=== PATIENT | male | born 1930 | race Caucasian/White ===

== ENCOUNTER 2020-04-22 19:02 | Emergency (ER) | payer MEDICARE, OTHER ==
[~2020-04-22 19:02] MED LIST: ATIVAN0.5 MG PO; ATORVASTATIN CA20 MG PO; AVODART0.5 MG PO; BAYER CHEWABLE81 MG PO; CLOPIDOGREL75 MG PO; CONSTULOSE10 GM/15 M PO; DITROPAN XL 5 MG5 MG PO; DRIZALMA SPRINK30 MG PO; EUTHYROX50 MCG PO; FLOMAX 0.4 MG0.4 MG PO; HYZAAR 100-251 EACH PO; MAXIMUM DAILY1 EAC1 PO; MIRALAX17 GM PO; PRESERVISION A1 EACH PO; TESSALON PERLE100 MG PO; VENTOLIN HFA 66.7 GM INH; VITAMIN B-12250 MC2 PO; ZITHROMAX500 MG PO
[2020-04-22 19:53] LABS: HEMOGLOBIN 10.6 gm/dl (14.0-17.5); RED BLOOD COUNT 3.59 M/UL (4.20-5.50); WHITE BLOOD COUNT 3.1 K/UL (4.5-11.0)
[2020-04-22 20:11] LABS: BUN/CREATININE RATIO 28 (0-10)
[2020-04-22] MEDS ORDERED: MEDROL4 MG PO (20:53)
[2020-04-22] MEDS ORDERED: VENTOLIN HFA 66.7 GM INH (20:53)
[2020-04-22] MEDS ORDERED: ZITHROMAX500 MG PO (20:53)
== END 2020-04-22 19:50 | disposition home or self-care (01) ==
LOC: ER1 19:02
PROVIDERS: Preventive Medicine Occupational Medicine
DX: R06.02 Shortness of breath (principal); I10 Essential (primary) hypertension; I25.10 Atherosclerotic heart disease of native coronary artery without angina pectoris; Z95.0 Presence of cardiac pacemaker; Z86.19 Personal history of other infectious and parasitic diseases
CPT/HCPCS: 36600; 71045; 80053; 82550; 82553; 82803; 83605; 83690; 83874; 84484; 85025; 85379; 85652; 86140; 93005; 96365; 96375; 99285; J0696; J2930

== ENCOUNTER → 2020-06-14 | Outpatient (CLI) | payer MEDICARE, OTHER ==
[~2020-06-14] MED LIST changes: +MEDROL4 MG PO
== END ==
LOC: HEART 5 05-31 08:45 → EXRD 06-03 11:15 → HEART 5 06-10 08:45
DX: I65.29 Occlusion and stenosis of unspecified carotid artery (principal); I25.10 Atherosclerotic heart disease of native coronary artery without angina pectoris; R53.83 Other fatigue; Z95.0 Presence of cardiac pacemaker
CPT/HCPCS: 78452; 93880; A9502; J2785

== ENCOUNTER → 2021-01-28 | Outpatient (CLI) | payer MEDICARE, OTHER ==
[~2021-01-28] MED LIST changes: +ASPIRIN EC81 MG PO; -BAYER CHEWABLE81 MG PO; +BENADRYL ALLERG25 MG PO; +CHLORTHALIDONE25 MG PO; +DOCUSATE SODIU100 MG PO; -DRIZALMA SPRINK30 MG PO; +DULOXETINE HCL30 MG PO; +FOLIC ACID1 MG PO; +LOSARTAN POTAS100 MG PO; +MELATONIN5 M2 PO; +PROTONIX40 MG PO; +VITAMIN B-121000 MCG PO; -VITAMIN B-12250 MC2 PO
== END ==
LOC: RAD 13:33
DX: R29.6 Repeated falls (principal); I51.7 Cardiomegaly
CPT/HCPCS: 71046

== ENCOUNTER 2021-01-29 08:49 | Inpatient (IN) | payer MEDICARE, OTHER ==
[~2021-01-29] VITALS: Ht 172.7 cm; Wt 72.6 kg
[~2021-01-29 08:49] MED LIST changes: -BENADRYL ALLERG25 MG PO; -CHLORTHALIDONE25 MG PO; -DOCUSATE SODIU100 MG PO; -FOLIC ACID1 MG PO; -LOSARTAN POTAS100 MG PO; -MELATONIN5 M2 PO; -PROTONIX40 MG PO
[2021-01-29 09:15] LABS: HEMOGLOBIN 10.6 gm/dl (14.0-17.5); RED BLOOD COUNT 3.28 M/UL (4.20-5.50); WHITE BLOOD COUNT 5.9 K/UL (4.5-11.0)
[2021-01-29 09:50] LABS: BUN/CREATININE RATIO 21 (0-10)
[2021-01-29] MEDS ORDERED: CHLORTHALIDONE25 MG PO (15:56)
[2021-01-29] MEDS ORDERED: LOSARTAN POTAS100 MG PO (15:56)
[2021-01-29] MEDS ORDERED: FOLIC ACID1 MG PO (15:56)
[2021-01-29] MEDS ORDERED: DOCUSATE SODIU100 MG PO (15:57)
[2021-01-29] MEDS ORDERED: PROTONIX40 MG PO (15:57)
[2021-01-29] MEDS ORDERED: MELATONIN5 M2 PO (16:01)
[2021-01-29] MEDS ORDERED: BENADRYL ALLERG25 MG PO (16:01)
[2021-01-30 08:50] LABS: RED BLOOD COUNT 3.06 M/UL (4.20-5.50)
[2021-01-30 08:51] LABS: WHITE BLOOD COUNT 4.3 K/UL (4.5-11.0)
[2021-01-30 09:20] LABS: BUN/CREATININE RATIO 19 (0-10)
[2021-01-31 05:35] LABS: HEMOGLOBIN 9.6 gm/dl (14.0-17.5); RED BLOOD COUNT 2.98 M/UL (4.20-5.50)
[2021-01-31 06:35] LABS: BUN/CREATININE RATIO 20 (0-10)
[2021-02-01 03:13] LABS: HEMOGLOBIN 9.3 gm/dl (14.0-17.5); RED BLOOD COUNT 2.93 M/UL (4.20-5.50); WHITE BLOOD COUNT 2.9 K/UL (4.5-11.0)
[2021-02-01 03:28] LABS: BUN/CREATININE RATIO 16 (0-10)
[2021-02-01] MEDS ORDERED: LEVOFLOXACIN500 MG PO (11:04)
[2021-02-01] MEDS ORDERED: TESSALON PERLE100 MG PO (11:04)
== END 2021-02-01 13:16 | disposition home or self-care (01) | DRG 177 ==
LOC: ER1 08:49 → CDU 14:57 → MED SURG 4 14:57
PROVIDERS: Physician Assistant; ADMIT Internal Medicine
DX: J69.0 Pneumonitis due to inhalation of food and vomit (principal); J96.01 Acute respiratory failure with hypoxia; E87.1 Hypo-osmolality and hyponatremia; Z20.822 Contact with and (suspected) exposure to COVID-19; H35.30 Unspecified macular degeneration; H54.40 Blindness, one eye, unspecified eye; E03.9 Hypothyroidism, unspecified; E78.5 Hyperlipidemia, unspecified; T50.2X5A Adverse effect of carbonic-anhydrase inhibitors, benzothiadiazides and other diuretics, initial encounter; E87.6 Hypokalemia; D64.9 Anemia, unspecified; D69.6 Thrombocytopenia, unspecified; I10 Essential (primary) hypertension; N40.0 Benign prostatic hyperplasia without lower urinary tract symptoms; I49.5 Sick sinus syndrome; I65.22 Occlusion and stenosis of left carotid artery; Z98.890 Other specified postprocedural states; Z83.3 Family history of diabetes mellitus; Z80.6 Family history of leukemia; Z79.899 Other long term (current) drug therapy; Z79.1 Long term (current) use of non-steroidal anti-inflammatories (NSAID); Z79.52 Long term (current) use of systemic steroids
CPT/HCPCS: 36415; 36600; 71045; 71046; 80048; 80053; 82436; 82550; 82553; 82803; 83605; 83615; 83690; 83735; 83874; 83880; 83935; 84100; 84133; 84300; 84439; 84443; 84484; 85025; 85379; 86140; 87040; 87070; 87205; 93005; 94664; 94760; 97161; 99285; J0456; J0696; J2543; J7030; Q9967; U0002

== ENCOUNTER → 2021-02-08 | Outpatient (CLI) | payer MEDICARE, OTHER ==
[~2021-02-08] MED LIST changes: +BENADRYL ALLERG25 MG PO; +CHLORTHALIDONE25 MG PO; +DOCUSATE SODIU100 MG PO; +FOLIC ACID1 MG PO; +LEVOFLOXACIN500 MG PO; +LOSARTAN POTAS100 MG PO; +MELATONIN5 M2 PO; +PROTONIX40 MG PO
[2021-02-08 12:28] LABS: BUN/CREATININE RATIO 16 (0-10)
== END ==
LOC: LAB 10:25
PROVIDERS: Family Medicine
DX: I73.9 Peripheral vascular disease, unspecified (principal)
CPT/HCPCS: 36415; 80048

== ENCOUNTER → 2021-04-25 | Outpatient (CLI) | payer MEDICARE, OTHER | LOC: US 13:27 | DX: M71.21 Synovial cyst of popliteal space [Baker], right knee (principal) | CPT/HCPCS: 76882 ==

== ENCOUNTER 2021-06-13 20:32 | Inpatient (IN) | payer MEDICARE, OTHER ==
[~2021-06-13] VITALS: Ht 172.7 cm; Wt 80.3 kg
[2021-06-13 21:59] LABS: HEMOGLOBIN 12.3 gm/dl (14.0-17.5); RED BLOOD COUNT 3.92 M/UL (4.20-5.50); WHITE BLOOD COUNT 6.7 K/UL (4.5-11.0)
[2021-06-14] MEDS ORDERED: HYGROTON TAB 2525 MG PO (05:12)
[2021-06-14] MEDS ORDERED: MULTI-VITAMIN1 EACH PO (09:18)
[2021-06-15 03:48] LABS: HEMOGLOBIN 10.9 gm/dl (14.0-17.5)
[2021-06-15 03:49] LABS: WHITE BLOOD COUNT 4.4 K/UL (4.5-11.0)
[2021-06-15 03:50] LABS: RED BLOOD COUNT 3.49 M/UL (4.20-5.50)
[2021-06-15 04:17] LABS: BUN/CREATININE RATIO 17 (0-10)
[2021-06-15] MEDS ORDERED: LEVOFLOXACIN750 MG PO (12:38)
== END 2021-06-15 14:00 | disposition home or self-care (01) | DRG 871 ==
LOC: ER1 20:32 → CDU 06-14 03:56 → M/S 06-14 03:56
PROVIDERS: Family Medicine; Internal Medicine; ADMIT Internal Medicine
DX: A41.9 Sepsis, unspecified organism (principal); J18.9 Pneumonia, unspecified organism; I73.9 Peripheral vascular disease, unspecified; E78.5 Hyperlipidemia, unspecified; E03.9 Hypothyroidism, unspecified; I10 Essential (primary) hypertension; Z20.822 Contact with and (suspected) exposure to COVID-19; I49.5 Sick sinus syndrome; N40.0 Benign prostatic hyperplasia without lower urinary tract symptoms; H54.40 Blindness, one eye, unspecified eye; H35.30 Unspecified macular degeneration; Z79.899 Other long term (current) drug therapy; Z95.0 Presence of cardiac pacemaker; Z98.890 Other specified postprocedural states; Z83.3 Family history of diabetes mellitus; Z80.6 Family history of leukemia; Z87.891 Personal history of nicotine dependence
CPT/HCPCS: 0240U; 36415; 71045; 80048; 80053; 82550; 82553; 83605; 83880; 84484; 85025; 87040; 87086; 93005; 94664; 97110-GP-CQ; 97116; 97116-GP-CQ; 97161; 99285; J0456; J0696; J1650; J2543; J7030; Q9967

== ENCOUNTER → 2021-10-20 | Outpatient (CLI) | payer MEDICARE, OTHER ==
[~2021-10-20] MED LIST changes: +HYGROTON TAB 2525 MG PO; +LEVOFLOXACIN750 MG PO; +MULTI-VITAMIN1 EACH PO
== END ==
LOC: CT 12:08
DX: N40.1 Benign prostatic hyperplasia with lower urinary tract symptoms (principal); R31.9 Hematuria, unspecified
CPT/HCPCS: 36415; 82565; 84520; Q9967

== ENCOUNTER 2021-10-28 16:15 | Inpatient (IN) | payer MEDICARE, OTHER ==
[~2021-10-28] VITALS: Ht 172.7 cm; Wt 79.9 kg
[~2021-10-28 16:15] MED LIST changes: -DITROPAN XL 5 MG5 MG PO; -EUTHYROX50 MCG PO; +OXYBUTYNIN CHLO15 MG PO; +SYNTHROID50 MCG PO
[2021-10-28 19:34] LABS: HEMOGLOBIN 12.4 gm/dl (14.0-17.5); RED BLOOD COUNT 3.93 M/UL (4.20-5.50); WHITE BLOOD COUNT 6.4 K/UL (4.5-11.0)
[2021-10-29 05:15] LABS: HEMOGLOBIN 11.5 gm/dl (14.0-17.5); RED BLOOD COUNT 3.62 M/UL (4.20-5.50); WHITE BLOOD COUNT 5.1 K/UL (4.5-11.0)
[2021-10-29 05:46] LABS: BUN/CREATININE RATIO 18 (0-10)
[2021-10-29] MEDS ORDERED: PROAIR HFA8.5 GM INH (10:41)
--- NOTE | 2021-10-29 11:23 | NUR ---
NOTIFIED DR. MATTSON OF LEFT SIDED FACIAL DROOP, PROVIDER STATED IT IS CHRONIC NO NEW ORDERS NOTED
[2021-10-30 03:57] LABS: HEMOGLOBIN 11.1 gm/dl (14.0-17.5); RED BLOOD COUNT 3.51 M/UL (4.20-5.50); WHITE BLOOD COUNT 4.2 K/UL (4.5-11.0)
[2021-10-30 05:09] LABS: BUN/CREATININE RATIO 16 (0-10)
[2021-10-31 02:25] LABS: HEMOGLOBIN 11.2 gm/dl (14.0-17.5); RED BLOOD COUNT 3.54 M/UL (4.20-5.50); WHITE BLOOD COUNT 3.9 K/UL (4.5-11.0)
[2021-10-31 02:45] LABS: BUN/CREATININE RATIO 18 (0-10)
[2021-11-01 03:02] LABS: HEMOGLOBIN 10.7 gm/dl (14.0-17.5); RED BLOOD COUNT 3.38 M/UL (4.20-5.50); WHITE BLOOD COUNT 3.7 K/UL (4.5-11.0)
[2021-11-01 03:52] LABS: BUN/CREATININE RATIO 19 (0-10)
--- NOTE | 2021-11-01 07:09 | NUR ---
CONTACTED PHARMACY TO VERIFY NUMBER OF SOFTGELS TO BE GIVEN FOR PRESERVISION SOFTGELS, TRICIA WITH PHARMACY CONFIRMED THAT PATIENT SHOULD ONLY RECIEVE 1 SOFTGEL AT TIME OF MED PASS.
== END 2021-11-02 15:34 | disposition home or self-care (01) | DRG 558 ==
LOC: ER1 16:15 → M/S 22:17 → CDU 22:17 → M/S 10-29 08:30
PROVIDERS: Internal Medicine; Psychiatry & Neurology Neurology; Student in an Organized Health Care Education/Training Program; ADMIT Internal Medicine
DX: M62.82 Rhabdomyolysis (principal); E78.5 Hyperlipidemia, unspecified; W01.0XXA Fall on same level from slipping, tripping and stumbling without subsequent striking against object, initial encounter; I10 Essential (primary) hypertension; E03.9 Hypothyroidism, unspecified; N40.0 Benign prostatic hyperplasia without lower urinary tract symptoms; I49.5 Sick sinus syndrome; R29.810 Facial weakness; H35.30 Unspecified macular degeneration; K59.00 Constipation, unspecified; I73.9 Peripheral vascular disease, unspecified; H54.40 Blindness, one eye, unspecified eye; I65.22 Occlusion and stenosis of left carotid artery; Z95.0 Presence of cardiac pacemaker; Z87.01 Personal history of pneumonia (recurrent); Z98.890 Other specified postprocedural states; Z83.3 Family history of diabetes mellitus; Z87.891 Personal history of nicotine dependence; Z79.82 Long term (current) use of aspirin; Z79.899 Other long term (current) drug therapy; Z79.02 Long term (current) use of antithrombotics/antiplatelets
CPT/HCPCS: ECHO; 36415; 70450; 70496; 70498; 73080; 73130; 80048; 80053; 81001; 82550; 82553; 82607; 82652; 83519; 83540; 83550; 83735; 83880; 83970; 84439; 84443; 84484; 85025; 85027; 92610; 93005; 93306; 93880; 97110-GP-CQ; 97116-GP-CQ; 97162; 97165; 97530; 99285; G0378; Q9967